=== PATIENT | female | born 1995 | race Caucasian/White ===

== ENCOUNTER 2017-09-03 09:25 | Emergency (ER) | payer OTHER | END 2017-09-03 12:29 | disposition home or self-care (01) | LOC: FTE 09:25 | DX: O99.89 Other specified diseases and conditions complicating pregnancy, childbirth and the puerperium (principal); M79.652 Pain in left thigh; M79.605 Pain in left leg; Z3A.29 29 weeks gestation of pregnancy | CPT/HCPCS: 93971; 99284-25 ==

== ENCOUNTER 2017-11-09 19:34 | Inpatient (IN) | payer OTHER ==
[2017-11-09] MEDS ORDERED: MISOPROSTOL 200 MCG TAB PR (23:00)
[2017-11-09] MEDS ORDERED: OXYTOCIN 30 UNITS/LR 500 ML IV (23:00)
[2017-11-09] MEDS ORDERED: METHYLERGONOVINE 0.2 MG INJ IM (23:00)
[2017-11-09] MEDS ORDERED: BUTORPHANOL 2 MG INJ IV (23:00)
[2017-11-09] MEDS ORDERED: CARBOPROST 250 MCG INJ IM (23:00)
[2017-11-09] MEDS ORDERED: LIDOCAINE 1% (MPF) 30 ML INJ INJ (23:00)
[2017-11-09] MEDS ORDERED: IBUPROFEN 600 MG TAB PO (23:00)
[2017-11-09] MEDS: LACTATED RINGER'S 1,000 ML IV (23:38)
[2017-11-09 23:47] LABS: ADD MAN DIFF? NO
[2017-11-09 23:58] LABS: WHITE BLOOD COUNT 9.6 10^3/ul (4.8-10.8)
[2017-11-09 23:58] LABS: BASOPHILS % 0.3 % (0.0-2.0); EOSINOPHILS % 0.4 % (0.0-7.0); HEMATOCRIT 32.2 % (37.0-47.0); HEMOGLOBIN 10.5 g/dl (12.0-16.0); LYMPHOCYTES # 1.7 10^3/ul (0.8-2.9); LYMPHOCYTES % 18.2 % (15.0-51.0); MEAN CORPUSCULAR HEMOGLOBIN 26.3 pg (29.0-33.0); MEAN CORPUSCULAR HGB CONC 32.6 g/dl (32.0-37.0); MEAN CORPUSCULAR VOLUME 80.5 fl (82.0-101.0); MEAN PLATELET VOLUME 12.2 fl (7.4-10.4); MONOCYTE # 0.6 10^3/ul (0.3-0.9); MONOCYTES % 6.2 % (0.0-11.0); NEUTROPHIL # 7.1 10^3/ul (1.6-7.5); NEUTROPHILS % 74.5 % (39.0-77.0); PLATELET COUNT 192 10^3/UL (140-415); RED CELL DISTRIBUTION WIDTH 14.9 % (11.5-14.5)
[2017-11-10 00:16] LABS: INR 0.94; PARTIAL THROMBOPLASTIN TIME 26.9 Sec (25.0-35.0); PROTIME 12.7 Sec (11.9-14.9)
[2017-11-10] MEDS: AMPICILLIN 2 GM/NS (PMX) 100 ML IV (00:16)
[2017-11-10 00:47] LABS: HEPATITIS B SURFACE ANTIGEN NEGATIVE (NEGATIVE)
[2017-11-10] MEDS: AMPICILLIN 1 GM/NS (PMX) 50 ML IV ×5 (04:31→19:00)
[2017-11-10] MEDS: LACTATED RINGER'S 1,000 ML IV ×2 (08:03→16:26)
[2017-11-10] MEDS ORDERED: OXYTOCIN 30 UNITS/LR 500 ML IV ×2 (10:00→21:00)
[2017-11-10] MEDS: ONDANSETRON 4 MG INJ IV (10:13)
[2017-11-10 15:04] LABS: RAPID PLASMA REAGIN NONREACTIVE (NR)
[2017-11-10] MEDS ORDERED: FENTAnyl 2MCG/ML-ROPIV 0.2% 100 ML BAG EPI (17:00)
[2017-11-10] MEDS ORDERED: EPHEDrine SULFATE 50 MG/5 ML SYG IV (17:00)
[2017-11-10] MEDS ORDERED: DIPHENHYDRAMINE 50 MG INJ IV (17:00)
[2017-11-10] MEDS ORDERED: ONDANSETRON 4 MG INJ IV (17:00)
[2017-11-10] MEDS ORDERED: NALOXONE (0.4 MG/ML) INJ IV (17:00)
[2017-11-10] MEDS: OXYTOCIN 30 UNITS/LR 500 ML IV ×2 (19:42→19:53)
[2017-11-10] MEDS: LACTATED RINGER'S 1,000 ML IV* (20:53)
[2017-11-10] MEDS ORDERED: DIBUCAINE 1% 30 GM OINT PR (21:00)
[2017-11-10] MEDS ORDERED: HYDROCODONE/APAP (5/325) TAB PO ×2 (21:00)
[2017-11-10] MEDS: MAGNESIUM HYDROXIDE 30ML CUP PO (21:00)
[2017-11-10] MEDS ORDERED: BENZOCAINE 20% 56 ML SPRAY TOP (21:00)
[2017-11-10] MEDS ORDERED: CARBOPROST 250 MCG INJ IM (21:00)
[2017-11-10] MEDS ORDERED: MISOPROSTOL 200 MCG TAB PR (21:00)
[2017-11-10] MEDS ORDERED: METHYLERGONOVINE 0.2 MG INJ IM (21:00)
[2017-11-10] MEDS: SENNA/DOCUSATE NA (8.6MG/50MG) TAB PO (21:00)
[2017-11-10] MEDS ORDERED: WITCH HAZEL/GLYCERIN PAD PR (21:00)
[2017-11-10] MEDS ORDERED: ZOLPIDEM 5 MG TAB PO (21:00)
[2017-11-10 21:02] LABS: AMPHETAMINE/METHAMPHETAMINE Negative (NEGATIVE); BARBITURATES Negative (NEGATIVE); BENZODIAZEPINES Negative (NEGATIVE); CANNABINOIDS Negative (NEGATIVE); COCAINE Negative (NEGATIVE); OPIATES Negative (NEGATIVE)
[2017-11-10] MEDS: CEPHALEXIN 500 MG CAP PO (23:46)
[2017-11-10] MEDS: IBUPROFEN 600 MG TAB PO (23:46)
[2017-11-10] MEDS: LANOLIN 7 GM TUBE TOP (23:47)
[2017-11-11] MEDS: LACTATED RINGER'S 1,000 ML IV* (04:53)
[2017-11-11] MEDS: CEPHALEXIN 500 MG CAP PO ×4 (05:39→23:32)
[2017-11-11] MEDS: IBUPROFEN 600 MG TAB PO ×4 (05:39→23:32)
[2017-11-11 10:13] LABS: ADD MAN DIFF? NO
[2017-11-11 10:18] LABS: WHITE BLOOD COUNT 10.4 10^3/ul (4.8-10.8)
[2017-11-11 10:18] LABS: BASOPHILS % 0.4 % (0.0-2.0); EOSINOPHILS # 0.1 10^3/ul (0.0-0.5); EOSINOPHILS % 0.7 % (0.0-7.0); HEMATOCRIT 30.5 % (37.0-47.0); HEMOGLOBIN 9.8 g/dl (12.0-16.0); LYMPHOCYTES # 1.6 10^3/ul (0.8-2.9); LYMPHOCYTES % 14.9 % (15.0-51.0); MEAN CORPUSCULAR HEMOGLOBIN 26.2 pg (29.0-33.0); MEAN CORPUSCULAR HGB CONC 32.1 g/dl (32.0-37.0); MEAN CORPUSCULAR VOLUME 81.6 fl (82.0-101.0); MEAN PLATELET VOLUME 11.9 fl (7.4-10.4); MONOCYTE # 0.9 10^3/ul (0.3-0.9); MONOCYTES % 8.7 % (0.0-11.0); NEUTROPHIL # 7.8 10^3/ul (1.6-7.5); NEUTROPHILS % 74.8 % (39.0-77.0); PLATELET COUNT 175 10^3/UL (140-415); RED BLOOD COUNT 3.74 10^6/ul (4.20-5.40)
[2017-11-11] MEDS: MAGNESIUM HYDROXIDE 30ML CUP PO ×2 (10:35→20:44)
[2017-11-11] MEDS: SENNA/DOCUSATE NA (8.6MG/50MG) TAB PO ×2 (10:35→20:44)
[2017-11-12] MEDS: IBUPROFEN 600 MG TAB PO ×3 (05:43→18:13)
[2017-11-12] MEDS: CEPHALEXIN 500 MG CAP PO ×3 (05:43→18:13)
[2017-11-12] MEDS: SENNA/DOCUSATE NA (8.6MG/50MG) TAB PO (08:57)
[2017-11-12] MEDS: MAGNESIUM HYDROXIDE 30ML CUP PO (08:57)
[2017-11-12] MEDS: MEASLES,MUMPS,RUBELLA VACCINE INJ SC* (09:12)
[2017-11-12] MEDS: VARICELLA VACCINE LIVE/PF 1,350 UNIT/0.5 ML ML SC* (09:12)
[2017-11-12] MEDS: DIPHTH/TET/ACEL PERTUSS (ADULT) 0.5 ML VIAL IM* (09:12)
== END 2017-11-12 17:05 | disposition home or self-care (01) | DRG 775 ==
LOC: OBT 19:34 → PP1 11-10 20:46 → L-D 19:35 → OBT 22:51 → L-D 22:21
PROVIDERS: Obstetrics & Gynecology
PROC: 4A1HXCZ Monitoring of Products of Conception, Cardiac Rate, External Approach (ICD-10-PCS; 2017-11-09)
PROC: 10E0XZZ Delivery of Products of Conception, External Approach (ICD-10-PCS; principal; 2017-11-10)
PROC: 10907ZC Drainage of Amniotic Fluid, Therapeutic from Products of Conception, Via Natural or Artificial Opening (ICD-10-PCS; 2017-11-10)
DX: O69.81X0 Labor and delivery complicated by cord around neck, without compression, not applicable or unspecified (principal); Z3A.39 39 weeks gestation of pregnancy; Z37.0 Single live birth
CPT/HCPCS: 62319; 80307; 85025; 85610; 85730; 86592; 86850; 86900; 86901; 87340

== ENCOUNTER 2018-12-26 18:55 | Inpatient (IN) | payer OTHER ==
[2018-12-27] MEDS: LORAZEPAM 1 MG TAB PO (00:07)
[2018-12-27] MEDS: ONDANSETRON 4 MG INJ IV (00:07)
[2018-12-27 01:20] LABS: TROPONIN-I < 0.012 ng/ml (0.000-0.120)
[2018-12-27 06:07] LABS: ADD MAN DIFF? NO
[2018-12-27 06:12] LABS: BASOPHILS % 0.5 % (0.0-2.0); EOSINOPHILS # 0.1 10^3/ul (0.0-0.5); EOSINOPHILS % 1.1 % (0.0-7.0); HEMATOCRIT 41.1 % (37.0-47.0); HEMOGLOBIN 12.8 g/dl (12.0-16.0); LYMPHOCYTES # 2.4 10^3/ul (0.8-2.9); LYMPHOCYTES % 28.6 % (15.0-51.0); MEAN CORPUSCULAR HEMOGLOBIN 26.9 pg (29.0-33.0); MEAN CORPUSCULAR HGB CONC 31.1 g/dl (32.0-37.0); MEAN CORPUSCULAR VOLUME 86.5 fl (82.0-101.0); MEAN PLATELET VOLUME 11.5 fl (7.4-10.4); MONOCYTE # 0.5 10^3/ul (0.3-0.9); MONOCYTES % 6.4 % (0.0-11.0); NEUTROPHIL # 5.3 10^3/ul (1.6-7.5); NEUTROPHILS % 63.2 % (39.0-77.0); PLATELET COUNT 251 10^3/UL (140-415); RED BLOOD COUNT 4.75 10^6/ul (4.20-5.40); RED CELL DISTRIBUTION WIDTH 14.6 % (11.5-14.5)
[2018-12-27 06:12] LABS: WHITE BLOOD COUNT 8.4 10^3/ul (4.8-10.8)
[2018-12-27 06:49] LABS: ANION GAP 9 (5-13); BLOOD UREA NITROGEN 9 mg/dl (7-20); CARBON DIOXIDE 27 mmol/L (21-31); CHLORIDE 109 mmol/L (97-110); GLUCOSE 102 mg/dl (70-220); SODIUM 145 mmol/L (135-144)
[2018-12-27 06:50] LABS: ALANINE AMINOTRANSFERASE 24 IU/L (13-69); ALBUMIN 4.3 g/dl (3.3-4.9); ALBUMIN/GLOBULIN RATIO 1.26; ALKALINE PHOSPHATASE 75 IU/L (42-121); ASPARTATE AMINO TRANSFERASE 24 IU/L (15-46); BILIRUBIN,INDIRECT 1.2 mg/dl (0-1.1); BILIRUBIN,TOTAL 1.2 mg/dl (0.2-1.3); CALCIUM 9.2 mg/dl (8.4-10.2); CHOLESTEROL 163 mg/dl (100-200); CREATININE 0.63 mg/dl (0.44-1.00); Estimated GFR > 60 mL/min (>60); HDL CHOLESTEROL 32 mg/dl (33-83); LDL CHOLESTEROL,CALCULATED 116 mg/dl; TOTAL PROTEIN 7.7 g/dl (6.1-8.1); TRIGLYCERIDES 77 mg/dl (0-149)
[2018-12-27 06:54] LABS: TROPONIN-I < 0.012 ng/ml (0.000-0.120)
[2018-12-27] MEDS: ASPIRIN 81 MG TAB PO (08:41)
[2018-12-27] MEDS: NITROGLYCERIN (SL) 0.4 MG TAB SL (08:44)
[2018-12-27] MEDS ORDERED: METOPROLOL 5 MG INJ IV (14:00)
[2018-12-27 14:42] LABS: MAGNESIUM 2.1 mg/dl (1.7-2.5)
[2018-12-27 14:52] LABS: TROPONIN-I < 0.012 ng/ml (0.000-0.120)
[2018-12-27 15:13] LABS: THYROID STIMULATING HORMONE 0.858 MIU/L (0.465-4.680)
[2018-12-27] MEDS: ACETAMINOPHEN 325 MG TAB PO (21:03)
[2018-12-28 02:11] LABS: ADD UMIC NO; UR ASCORBIC ACID NEGATIVE (NEGATIVE); UR BACTERIA FEW /HPF (NONE SEEN); UR BILIRUBIN (Dip) NEGATIVE (NEGATIVE); UR BLOOD (Dip) NEGATIVE (NEGATIVE); UR CLARITY SLIGHTLY CLOUDY (CLEAR); UR COLOR YELLOW (YELLOW); UR GLUCOSE (Dip) NEGATIVE (NEGATIVE); UR KETONES (Dip) 1+ mg/dL (NEGATIVE); UR LEUKOCYTE ESTERASE (Dip) NEGATIVE Leu/ul (NEGATIVE); UR NITRITE (Dip) NEGATIVE (NEGATIVE); UR RBC 0 /HPF (0-5); UR SPECIFIC GRAVITY (Dip) 1.009 (1.003-1.030); UR SQUAMOUS EPITHELIAL CELL FEW /HPF (FEW); UR TOTAL PROTEIN (Dip) NEGATIVE (NEGATIVE); UR UROBILINOGEN (Dip) NEGATIVE (NEGATIVE); UR WBC 2 /HPF (0-5)
[2018-12-28] MEDS: LORAZEPAM 1 MG TAB PO (02:16)
[2018-12-28 05:58] LABS: ADD MAN DIFF? NO
[2018-12-28] MEDS: PANTOPRAZOLE (EC) 40 MG TAB PO (06:02)
[2018-12-28 06:07] LABS: WHITE BLOOD COUNT 8.4 10^3/ul (4.8-10.8)
[2018-12-28 06:07] LABS: BASOPHILS % 0.4 % (0.0-2.0); EOSINOPHILS # 0.1 10^3/ul (0.0-0.5); EOSINOPHILS % 0.8 % (0.0-7.0); HEMATOCRIT 39.9 % (37.0-47.0); HEMOGLOBIN 12.7 g/dl (12.0-16.0); LYMPHOCYTES # 1.4 10^3/ul (0.8-2.9); LYMPHOCYTES % 16.4 % (15.0-51.0); MEAN CORPUSCULAR HEMOGLOBIN 27.1 pg (29.0-33.0); MEAN CORPUSCULAR HGB CONC 31.8 g/dl (32.0-37.0); MEAN CORPUSCULAR VOLUME 85.1 fl (82.0-101.0); MEAN PLATELET VOLUME 11.1 fl (7.4-10.4); MONOCYTE # 0.8 10^3/ul (0.3-0.9); MONOCYTES % 9.3 % (0.0-11.0); NEUTROPHIL # 6.1 10^3/ul (1.6-7.5); NEUTROPHILS % 72.6 % (39.0-77.0); PLATELET COUNT 245 10^3/UL (140-415); RED BLOOD COUNT 4.69 10^6/ul (4.20-5.40); RED CELL DISTRIBUTION WIDTH 14.2 % (11.5-14.5)
[2018-12-28 06:46] LABS: ANION GAP 9 (5-13); BLOOD UREA NITROGEN 8 mg/dl (7-20); CALCIUM 9.8 mg/dl (8.4-10.2); CARBON DIOXIDE 27 mmol/L (21-31); CHLORIDE 104 mmol/L (97-110); CREATININE 0.64 mg/dl (0.44-1.00); Estimated GFR > 60 mL/min (>60); GLUCOSE 92 mg/dl (70-220); POTASSIUM 3.5 mmol/L (3.5-5.1); SODIUM 140 mmol/L (135-144)
[2018-12-28 06:52] LABS: TROPONIN-I < 0.012 ng/ml (0.000-0.120)
[2018-12-28] MEDS: ASPIRIN 81 MG TAB PO (09:52)
== END 2018-12-28 17:15 | disposition home or self-care (01) | DRG 309 ==
LOC: 6WM 18:55
PROVIDERS: Internal Medicine
DX: I49.3 Ventricular premature depolarization (principal); N39.0 Urinary tract infection, site not specified; E87.0 Hyperosmolality and hypernatremia; E78.5 Hyperlipidemia, unspecified; R00.0 Tachycardia, unspecified; F41.9 Anxiety disorder, unspecified; E66.3 Overweight; Z68.29 Body mass index [BMI] 29.0-29.9, adult; Z79.82 Long term (current) use of aspirin
CPT/HCPCS: 80048; 80053; 80061; 81001; 81003; 83735; 84443; 84484; 85025; 93005; 93306

== ENCOUNTER 2018-12-31 11:19 | Emergency (ER) | payer OTHER ==
[2018-12-31] MEDS: ONDANSETRON (ODT) 4 MG TAB ODT (12:36)
[2018-12-31] MEDS: SOD CHLORIDE 0.9% 1,000 ML IV (12:49)
[2018-12-31 12:54] LABS: ADD MAN DIFF? NO
[2018-12-31 12:56] LABS: WHITE BLOOD COUNT 9.7 10^3/ul (4.8-10.8)
[2018-12-31 12:56] LABS: BASOPHIL # 0.1 10^3/ul (0.0-0.1); BASOPHILS % 0.5 % (0.0-2.0); EOSINOPHILS % 0.4 % (0.0-7.0); HEMATOCRIT 40.9 % (37.0-47.0); LYMPHOCYTES # 1.6 10^3/ul (0.8-2.9); MEAN CORPUSCULAR HEMOGLOBIN 27.4 pg (29.0-33.0); MEAN CORPUSCULAR HGB CONC 31.8 g/dl (32.0-37.0); MEAN CORPUSCULAR VOLUME 86.3 fl (82.0-101.0); MEAN PLATELET VOLUME 11.4 fl (7.4-10.4); MONOCYTE # 0.5 10^3/ul (0.3-0.9); MONOCYTES % 5.4 % (0.0-11.0); NEUTROPHIL # 7.5 10^3/ul (1.6-7.5); NEUTROPHILS % 77.4 % (39.0-77.0); PLATELET COUNT 294 10^3/UL (140-415); RED BLOOD COUNT 4.74 10^6/ul (4.20-5.40); RED CELL DISTRIBUTION WIDTH 14.1 % (11.5-14.5)
[2018-12-31 13:06] LABS: ADD UMIC YES; UR ASCORBIC ACID NEGATIVE (NEGATIVE); UR BACTERIA MODERATE /HPF (NONE SEEN); UR BILIRUBIN (Dip) NEGATIVE (NEGATIVE); UR BLOOD (Dip) 3+ mg/dL (NEGATIVE); UR CLARITY SLIGHTLY CLOUDY (CLEAR); UR COLOR YELLOW (YELLOW); UR GLUCOSE (Dip) NEGATIVE (NEGATIVE); UR KETONES (Dip) TRACE mg/dL (NEGATIVE); UR LEUKOCYTE ESTERASE (Dip) NEGATIVE Leu/ul (NEGATIVE); UR MUCUS MANY /HPF (NONE SEEN); UR NITRITE (Dip) NEGATIVE (NEGATIVE); UR RBC > 182 /HPF (0-5); UR SPECIFIC GRAVITY (Dip) 1.021 (1.003-1.030); UR SQUAMOUS EPITHELIAL CELL FEW /HPF (FEW); UR TOTAL PROTEIN (Dip) 2+ mg/dl (NEGATIVE); UR UROBILINOGEN (Dip) NEGATIVE (NEGATIVE); UR WBC 62 /HPF (0-5)
[2018-12-31 13:20] LABS: ALANINE AMINOTRANSFERASE 173 IU/L (13-69); ALKALINE PHOSPHATASE 162 IU/L (42-121); ANION GAP 11 (5-13); ASPARTATE AMINO TRANSFERASE 56 IU/L (15-46); BLOOD UREA NITROGEN 8 mg/dl (7-20); CALCIUM 9.7 mg/dl (8.4-10.2); CARBON DIOXIDE 24 mmol/L (21-31); CHLORIDE 107 mmol/L (97-110); CREATININE 0.61 mg/dl (0.44-1.00); Estimated GFR > 60 mL/min (>60); GLUCOSE 104 mg/dl (70-220); LIPASE 60 U/L (23-300); POTASSIUM 3.9 mmol/L (3.5-5.1); SODIUM 142 mmol/L (135-144)
[2018-12-31 13:21] LABS: BILIRUBIN,INDIRECT 0.7 mg/dl (0-1.1); BILIRUBIN,TOTAL 0.7 mg/dl (0.2-1.3); TOTAL PROTEIN 8.8 g/dl (6.1-8.1)
[2018-12-31 13:37] LABS: ALBUMIN 4.7 g/dl (3.3-4.9); ALBUMIN/GLOBULIN RATIO 1.14
== END 2018-12-31 14:23 | disposition home or self-care (01) ==
LOC: FTE 11:19
DX: R11.2 Nausea with vomiting, unspecified (principal)
CPT/HCPCS: 36415; 80053; 81001; 81025; 83690; 85025; 96361; 96374; 99284-25

== ENCOUNTER 2019-01-11 14:11 | Emergency (ER) | payer OTHER ==
[2019-01-11] MEDS: KETOROLAC 60 MG INJ IM (15:31)
== END 2019-01-11 15:36 | disposition home or self-care (01) ==
LOC: FTE 14:11
DX: M54.6 Pain in thoracic spine (principal)
CPT/HCPCS: 81025; 96372; 99284-25